=== PATIENT | female | born 1970 | race Caucasian/White ===

== ENCOUNTER → 2018-11-17 15:54 | Outpatient (CLI) | payer OTHER, SELFPAY | PROVIDERS: Visit Provider Physician Assistant | DX: J02.9 Acute pharyngitis, unspecified (principal) | CPT/HCPCS: 87070; 87077; 87147 ==

== ENCOUNTER → 2019-12-07 08:00 | Outpatient (CLI) | payer OTHER, SELFPAY ==
[2019-12-07 09:38] LABS: Add Manual Diff / Slide Review NO; Basophils Absolute Auto 0 /uL (0-100); Basophils Percent Auto 0.2 % (0-2); Eosinophils Absolute Auto 100 /uL (0-450); Hemoglobin 13.9 g/dL (12.0-16.0); Lymphocytes Absolute Auto 1500 /uL (1100-4500); Mean Corpuscular HGB Conc 33.8 % (30-36); Mean Corpuscular Hemoglobin 29.4 PG (26-34); Mean Corpuscular Volume 86.8 fL (80-100); Monocytes Absolute Auto 300 /uL (0-900); Monocytes Percent Auto 3.6 % (3-14); Neutrophils Absolute Auto 5600 /uL (1500-7000); Neutrophils Percent Auto 75.2 % (50-75); Platelet Count 282 X10^3/uL (150-400); Red Blood Cell Count 4.72 X10^6/uL (4.0-5.2); Red Cell Distribution Width 13.4 % (11.6-14.8); White Blood Cell Count 7.5 X10^3/uL (4.5-11.0)
[2019-12-07 09:49] LABS: Hemoglobin A1C% w Est Avg Glu 5.3 % (4.0-6.0)
[2019-12-07 09:49] LABS: Alanine Aminotransferase 21 IU/L (<35); Albumin 4.4 g/dL (3.5-5.0); Albumin Globulin Ratio 1.5 (1.0-2.8); Alkaline Phosphatase 69 U/L (38-126); Aspartate Aminotransferase 20 IU/L (14-36); BUN Creatinine Ratio 14.4 (6-22); Bilirubin Total 0.4 mg/dL (0.2-1.3); Blood Urea Nitrogen 13 mg/dL (7-17); Calcium 9.8 mg/dL (8.4-10.2); Carbon Dioxide 21 mmol/L (22-32); Chloride 110 mmol/L (98-107); Cholesterol 250 mg/dL (140-199); Estimated Glomerular Filt Rate > 60.0 mL/min (>60); Globulin 2.9 g/dL (1.7-4.1); Glucose 105 mg/dL (70-100); HDL Cholesterol 36 mg/dL (40-60); LDL Cholesterol Calculated 168 mg/dL (<100); Potassium 4.2 mmol/L (3.4-5.1); Sodium 140 mmol/L (137-145); Total Protein 7.3 g/dL (6.3-8.2); Triglycerides 232 mg/dL (35-150)
[2019-12-07 10:03] LABS: Rheumatoid Factor < 8.6 IU/mL (<12.0)
[2019-12-07 10:24] LABS: Cortisol AM (Before 10AM) 7.09 ug/dL (4.46-22.7); HEMOLYSIS < 15 (0-50)
[2019-12-07 11:44] LABS: TSH w/ Reflex to FT4 1.08 uIU/mL (0.47-4.68)
[2019-12-07 12:12] LABS: Erythrocyte Sedimentation Rate 8 MM/HR (0-20)
[2019-12-09 16:46] LABS: Adrenocorticotropic Hormone 13 pg/mL (6-50)
[2019-12-10 16:45] LABS: ANA Screen, IFA NEGATIVE (NEGATIVE)
== END ==
PROVIDERS: PCP Family Medicine; Referring Provider Family Medicine; Visit Provider Family Medicine
DX: Z13.220 Encounter for screening for lipoid disorders (principal); M25.50 Pain in unspecified joint; R53.83 Other fatigue; E66.01 Morbid (severe) obesity due to excess calories; F32.9 Major depressive disorder, single episode, unspecified; G43.909 Migraine, unspecified, not intractable, without status migrainosus
CPT/HCPCS: 36415; 80053; 80061; 82024; 82533; 83036; 84443; 85025; 85651; 86038; 86140; 86430

== ENCOUNTER → 2020-09-15 15:20 | Outpatient (CLI) | payer OTHER, MEDICAID, SELFPAY | PROVIDERS: PCP Family Medicine; Visit Provider Obstetrics & Gynecology | DX: N39.3 Stress incontinence (female) (male) (principal); R82.90 Unspecified abnormal findings in urine | CPT/HCPCS: 87086 ==